=== PATIENT | male | born 1960 | race Caucasian/White ===

== ENCOUNTER 2024-06-21 08:35 | Outpatient (REF) | payer OTHER, SELFPAY ==
--- NOTE | ~2024-06-21 | XR_ITS ---
CLINICAL HISTORY: M25.511 - Pain in right shoulder Right shoulder two views Comparison: None Findings: No acute fracture or dislocation identified. Mild degenerative change glenohumeral joint. Degenerative change AC joint. No radiopaque foreign body noted. Impression: No acute bony abnormality This document has been electronically signed by: Rivera Sanchez MD on 06/21/2024 21:03:27
--- OUTSIDE RECORDS SUMMARY | 2024-06-22 08:56 | XMS_ITS | Clinical Summary ---
Author Organization [facility] Address [address] [place] [address] Care Team Providers Care Build Engineer Name Role Phone Unavailable Primary Care Provider [...]
== END 2024-06-21 08:36 | disposition home or self-care (01) ==
LOC: HO.HOSX 08:35
PROVIDERS: Visit Provider Orthopaedic Surgery
DX: M25.511 Pain in right shoulder (principal)
CPT/HCPCS: 73030

== ENCOUNTER 2024-06-21 08:52 | Outpatient (AMB) | payer OTHER, SELFPAY ==
--- NOTE | 2024-06-21 09:04 | MHC.OFFVIS ---
Vital Signs 06/21/24 09:06 Height 5 ft 10 in Weight 276 lb BMI 39.6 Intake Visit Reasons: Right shoulder pain and weakness Intake Note: Moreno is a 64 year old right hand dominant male who presents with complaints of progressively worsening right shoulder pain and weakness. The patient describes his pain as sharp and severe in nature. He did injure his right shoulder several years ago while lifting a heavy object. Since that time he has had difficulty lifting his right hand above shoulder height. He has taken Tylenol and anti-inflammatory medicines which gave him minimal relief. He has also done physical therapy which aggravated his pain. The patient has failed the last 6 weeks of conservative treatment. He denies any numbness or tingling in either of his upper extremities. Allergies No Known Allergies Allergy (Verified 06/21/24 09:06) Medication List - Last Reconciled 06/21/24 by Carson Alex MD atorvastatin mg PO DAILY escitalopram oxalate mg PO DAILY tirzepatide (Mounjaro) 2.5 mg subcut QWEEK [facility] Social History (Updated 06/21/24 @ 09:09 by MADIHA Carney) Patient Tobacco Use Status: Never used Tobacco Current occupational status: employed Current occupation: rt handed, landscaping Physical Exam Vital Signs: BMI result Body Mass Index 39.6 Const Other: Well-nourished well-developed very friendly male awake alert and oriented x3 in no acute distress Extrem Other: Bilateral upper extremity examination shows good capillary refill, no skin lesions noted, normal sensation light touch Right shoulder examination shows decreased range of motion when compared to his left shoulder, 4/5 strength with supraspinatus testing, positive impingement signs, no instability Results Reviewed Results Reviewed: X-rays of the patient's right shoulder show severe acromioclavicular joint narrowing, a type 2 acromion, no acute bony abnormalities Assessment & Plan Assessment & Plan (1) Rotator cuff insufficiency of right shoulder: Code(s): M25.311 - Other instability, right shoulder Category: Medical Plan Mr. Calderon presents with progressively worsening right shoulder pain and weakness most likely due to a full-thickness rotator cuff tear. Thus, I will send the patient for an MRI of his right shoulder for further evaluation. I will contact him by phone once the MRI results are available. He will continue with his range of motion exercises in the meantime. Feel free to call me at any time should questions regarding his orthopedic management arise. I spent 21 minutes in reviewing the patient's records and imaging studies, seeing the patient and documenting in the medical record. Orders: Orders MR shoulder RT wo con Today M25.311 - Other instability, right shoulder XR shoulder RT min 2V Today M25.511 - Pain in right shoulder Coding Level of Care Code Est Pt Level 3 (13508) Complex EM visit Add On G2211 Diagnoses Rotator cuff insufficiency of right shoulder M25.311
[2024-06-21 09:06] VITALS: BMI 39.6
--- OUTSIDE RECORDS SUMMARY | 2024-06-21 09:10 | XMS_ITS | Clinical Summary ---
Author Organization [facility] Address [address] [place] [address] Care Team Providers Care Shop Hand Name Role Phone Unavailable Primary Care Provider Unavailabl e Allergies No known active allergies Medications Medication Sig Dispensed Refills Start Date End Date Status citalopram (CELEXA) 20 MG tablet Take 20 mg by mouth daily. 0 Active Family History Medical History Relation Name Comments Diabetes Father Heart disease Father Relation Name Status Comments Father Social History Tobacco Use Types Packs/Day Years Used Date Smoking Tobacco: Never Assessed Sex and Gender Information Value Date Recorded Sex Assigned at Not on file Gender Identity Not on file Sexual Orientation Not on file Last Filed Vital Signs Vital Sign Reading Time Taken Comments Blood Pressure - - Pulse - - Temperature - - Respiratory Rate - - Oxygen Saturation - - Inhaled Oxygen Concentration - - Weight 124.7 kg (275 lb) 07/28/2017 1:51 PM EST Height 180.3 cm (5' 11 ) 07/28/2017 1:51 PM EST Body Mass Index 38.35 07/28/2017 1:51 PM EST Plan of Treatment Health Maintenance Due Date Last Done Comments Hepatitis C Screening 1960 COVID-19 Vaccine (#1) 1962 Depression Screening 1974 Preventative Health Evaluation 01/19/1980 DTap / Tdap / Td (1 - Tdap) 1981 Colon Cancer Screening (Colonoscopy) 2007 Shingrix-Zoster Vaccine (1 of 2) 01/19/2012 Influenza Vaccine (#1) 2024 RSV Adult > 60+ Yrs or Pregn ant (1 - 1-dose 75+ series) 2037 Hepatitis B Vaccines Aged Out No long er eligible based on patient's age to complete this topic Pneumococcal Vaccine Aged Out No long er eligible based on patient's age to complete this topic RSV Ped < 20 months Aged Out No longe r eligible based on patient's age to complete this topic
== END 2024-06-21 09:31 | disposition home or self-care (01) ==
PROVIDERS: PCP Nurse Practitioner; Visit Provider Orthopaedic Surgery
DX: M25.311 Other instability, right shoulder (principal)
CPT/HCPCS: 99213

== ENCOUNTER → 2024-06-21 08:54 | Outpatient (BNV) | payer OTHER, SELFPAY | PROVIDERS: Visit Provider Radiology Diagnostic Radiology | DX: M25.511 Pain in right shoulder (principal) | CPT/HCPCS: 73030 ==

== ENCOUNTER → 2024-07-18 16:20 | Outpatient (BNV) | payer OTHER, SELFPAY | PROVIDERS: PCP Nurse Practitioner; Visit Provider Radiology Diagnostic Radiology | DX: S46.011A Strain of muscle(s) and tendon(s) of the rotator cuff of right shoulder, initial encounter (principal); S43.431A Superior glenoid labrum lesion of right shoulder, initial encounter; M75.21 Bicipital tendinitis, right shoulder | CPT/HCPCS: 73221 ==

== ENCOUNTER 2024-07-18 16:25 | Outpatient (REF) | payer OTHER, SELFPAY ==
--- NOTE | ~2024-07-18 | MR_ITS ---
CLINICAL HISTORY: M25.311 - Other instability, right shoulder Exam: MRI of the right shoulder without intravenous contrast. Comparison: Radiographs June 21, 2024. Findings: Full-thickness tear of the anterior and distal fibers of the supraspinatus tendon of the rotator cuff are identified. The fluid gap measures 15 mm anterior to posterior x 10 mm medial to lateral. No muscle atrophy seen. This tear extends into the articular surface fibers of the distal infraspinatus tendon. Teres minor and subscapularis tendons are intact. This is tear of the superior labrum. This extends posteriorly to the 9 o'clock position of the labrum. There is cystic change along the inferior glenoid without discrete anteroinferior labral tear. The tendon of the long head of the biceps is appropriately positioned within the bicipital groove. Increased fluid within the biceps tendon sheath. Type 2 acromion. Moderate degenerative change of the AC joint. Prominent induration and edema within the rotator interval. Increased fluid within the subacromial/subdeltoid space due to free egress of joint fluid through the full-thickness rotator cuff tear. Impression: 1. Full-thickness tear of the anterior and distal fibers of the supraspinatus tendon of the rotator cuff. This tear extends into the anterior fibers of the articular surface of the infraspinatus tendon. 2. SLAP tear. 3. Biceps tenosynovitis without biceps tendon tear. This document has been electronically signed by: Mayito Adler MD on 07/19/2024 10:11:05
--- OUTSIDE RECORDS SUMMARY | 2024-07-18 18:25 | XMS_ITS | Clinical Summary ---
Author Organization [facility] Address [address] [place] [address] Care Team Providers Care Collections Manager Name Role Phone Unavailable Primary Care Provider [...]
== END 2024-07-18 16:26 | disposition home or self-care (01) ==
LOC: HO.MRI 16:25
PROVIDERS: PCP Nurse Practitioner; Visit Provider Orthopaedic Surgery
DX: M25.311 Other instability, right shoulder (principal)
CPT/HCPCS: 73221

== ENCOUNTER 2024-08-09 08:43 | Outpatient (AMB) | payer OTHER, SELFPAY ==
--- NOTE | 2024-08-09 08:49 | MHC.OFFVIS ---
Vital Signs 08/09/24 08:50 Height 5 ft 10 in Weight 276 lb BMI 39.6 Intake Visit Reasons: OV-MRI review RT shoulder Intake Note: Moreno is a 64 year old right hand dominant male who presents with complaints of right shoulder pain. He describes his pain as sharp nature. Most of the pain is along superior and lateral aspects of his shoulder. He has done physical therapy exercises which aggravated his pain. He has also tried Tylenol and anti-inflammatory medicines which gave him minimal relief. He reports mild weakness when lifting his right hand above shoulder height. He has not had a cortisone injection. Allergies No Known Allergies Allergy (Verified 08/09/24 08:50) Medication List - Last Reconciled 08/09/24 by Carson Alex MD atorvastatin mg PO DAILY escitalopram oxalate mg PO DAILY tirzepatide (Mounjaro) 2.5 mg subcut QWEEK [facility] Social History Patient Tobacco Use Status: Never used Tobacco Current occupational status: employed Current occupation: rt handed, landscaping Physical Exam Vital Signs: BMI result Body Mass Index 39.6 Const Other: Well-nourished well-developed very friendly male awake alert and oriented x3 in no acute distress Extrem Other: Bilateral upper extremity examination shows good capillary refill, no skin lesions noted, normal sensation light touch Right shoulder examination shows slightly decreased of motion when compared to his left shoulder, 4/5 strength with supraspinatus testing, positive impingement signs, tenderness over his acromioclavicular joint, no instability Office Procedures AMB Joint Injection/Aspiration Joint Injection/Aspiration Primary Site: right shoulder Prep: site was prepped using aseptic technique Injected: 40 mg of, DepoMedrol and 1% plain lidocaine Procedure: The patient tolerated the procedure well Coding 49861 - Large joint Procedure code (CPT) selection complete Results Reviewed Results Reviewed: MRI of the patient's right shoulder show severe acromioclavicular joint narrowing, a type 3 acromion, a small full-thickness tear of the supraspinatus tendon Assessment & Plan Assessment & Plan (1) Rotator cuff insufficiency of right shoulder: Code(s): M25.311 - Other instability, right shoulder Category: Medical Plan Mr. Calderon presents with right shoulder pain due to impingement syndrome, acromioclavicular joint arthritis and a small supraspinatus tendon tear. The risks and benefits of a right shoulder cortisone injection were discussed at length with the patient. The patient wished to proceed. He tolerated the injection well. He will continue with his activity modifications. If he does not get lasting relief from the cortisone injection therapy he is interested in undergoing right shoulder surgery later this year. He will contact my office to pick a surgery date if he chooses to do so. Surgery will involve right shoulder diagnostic arthroscopy with distal clavicle excision, acromioplasty and rotator cuff repair. Feel free to call me at any time should questions regarding his orthopedic management arise. I spent 21 minutes in reviewing the patient's records and imaging studies, seeing the patient and documenting in the medical record. Orders: Orders AMB Joint Injection/Aspiration Today M25.311 - Other instability, right shoulder Coding Level of Care Code Est Pt Level 3 (75350) Complex EM visit Add On G2211 Diagnoses Rotator cuff insufficiency of right shoulder M25.311 CPT Codes Coding - 70644 Large joint: 79356 - Large joint ([id number])
[2024-08-09 08:50] VITALS: BMI 39.6
--- OUTSIDE RECORDS SUMMARY | 2024-08-09 09:06 | XMS_ITS | Clinical Summary ---
Author Organization [facility] Address [address] [place] [address] Care Team Providers Care Care Aide Name Role Phone Unavailable Primary Care Provider [...]
== END 2024-08-09 09:09 | disposition home or self-care (01) ==
LOC: HO.HOS 08:44
PROVIDERS: PCP Nurse Practitioner; Visit Provider Orthopaedic Surgery
DX: M25.311 Other instability, right shoulder (principal)
CPT/HCPCS: 20610; 99213

== ENCOUNTER → 2024-08-09 08:43 | Outpatient (BNVA) | payer OTHER, SELFPAY | PROVIDERS: PCP Nurse Practitioner; Visit Provider Orthopaedic Surgery | DX: M25.311 Other instability, right shoulder (principal) | CPT/HCPCS: 20610; J2003; J3301 ==